=== PATIENT | male | born 1950 | race Caucasian/White ===

== ENCOUNTER 2022-07-28 09:33 | Day surgery (SDC) | payer MEDICARE, BC ==
[2022-07-28] MEDS ORDERED: Propofol 200 MG/20 ML SDV IV ONE (09:34)
[2022-07-28] MEDS ORDERED: Glycopyrrolate 0.2 MG/ML 5 ML MDV IV ONE (09:34)
[2022-07-28] MEDS ORDERED: Lactated Ringers 1,000 ML IV SCH (09:45)
[2022-07-28] MEDS ORDERED: Sodium Chloride 0.9% 10 ML Syringe FLUSH PRN (09:45)
[2022-07-28] MEDS ORDERED: Simethicone Drops 40 MG/0.6 ML 30 ML Bottle PO ONE (12:04)
== END 2022-07-28 13:13 | disposition home or self-care (01) ==
LOC: FB.SDS 09:33
PROVIDERS: ATTEND Surgery
DX: Z12.11 Encounter for screening for malignant neoplasm of colon (principal); D12.2 Benign neoplasm of ascending colon; I10 Essential (primary) hypertension; E78.5 Hyperlipidemia, unspecified; E66.9 Obesity, unspecified; E11.40 Type 2 diabetes mellitus with diabetic neuropathy, unspecified; Z68.39 Body mass index [BMI] 39.0-39.9, adult; Z79.899 Other long term (current) drug therapy; Z86.010 Personal history of colon polyps; Z91.018 Allergy to other foods; Z79.4 Long term (current) use of insulin; Z98.890 Other specified postprocedural states
CPT/HCPCS: 00811-QZ; 88305; A9270-GY; J2704; J3490; J7120